=== PATIENT | male | born 1955 | race African-American/Black ===

== ENCOUNTER 2018-08-16 10:02 | Observation (INO) ==
--- NOTE | 2018-08-16 10:15 | Emergency Department Note ---
Disposition Clinical Impression: Congestive heart failure Qualifiers: Heart failure type: unspecified Heart failure chronicity: unspecified Qualified Code(s): I50.9 - Heart failure, unspecified Disposition: Admitted As Inpatient Condition: Fair Instructions: Heart Failure (ED) Referrals: Unassigned,Provider [Non-Partnered Physician] - SOB HPI - General Stated Complaint: RF Time Seen by Provider: 08/16/18 10:08 Source: patient, EMS Mode of arrival: EMS Limitations: no limitations Nursing Notes Reviewed: Yes Vital Signs Reviewed: Yes - History of Present Illness 62-year-old male percents for evaluation of shortness of breath. Patient states he has had a history of congestive heart failure and uses an inhaler for his lungs. He developed increased shortness of breath starting last night and increased this morning that he call [facility]. Patient states no cough. Denies any fever or chills. He does complain of tightness to his chest. He states no nausea vomiting. He said leg swelling he has is always present and does not feels worse than usual. Patient reports that he was supposed to start CPAP at home but has not picked up the necessary equipment to do so as of yet for obstructive sleep apnea Recent discharge summary hospital course from discharge on 05/23/2018 Hospital course: Mr. Talley is a 62 year old male with past medical history of prostate CA, HTN, HLD, DM-II, CAD s/p AK and stent placement, PAD s/p fem by pass B/L LE, ALICE, COPD, former smoker was referred to [facility] from primary care provider as he has elevated troponin in his lab reports and patient also reported left shoulder and chest pain with shortness of breath. The patient was referred from [facility] to [facility] for further cardiac workup.EKG done in ED showed sinus rhythm ,HR 91, non specific ST &T abnormalities. Chest x- ray: Minimal pulmonary vascular congestion. Serial Troponin level 0.07, 0.06. Echo showed : LVEF 50-55%. Normal LV chamber size, wall thickness and systolic function. Mild left ventricular diastolic dysfunction. The patient was admitted for cardiac cardiac monitoring and workup for chest pain. While he was in inpatient cardiologists consulted him and plan for left heart catheterization. He was undergone left heart catheterization 05/22/2018 LAD : here is a 70% stenosis in the Mid LAD. The lesion has no thrombus present. An intervention was performed on the Mid LAD with a final stenosis of 0%. There were no lesion complications, circumflex, right coronary artery, left main coronary artery angiographically free of disease. - Related Data Home Medications Medication Instructions Recorded Confirmed Pharmacy Note 05/21/18 Albuterol Sulfate [Ventolin Hfa] 18 gm IH Q6H PRN 08/16/18 08/16/18 Folic Acid 1 mg PO DAILY 08/16/18 08/16/18 Gabapentin [Neurontin] 300 mg PO DAILY 08/16/18 08/16/18 GlipiZIDE [Glipizide Xl] 5 mg PO DAILY 08/16/18 08/16/18 Lansoprazole [Prevacid] 15 mg PO DAILY 08/16/18 08/16/18 Loratadine [Claritin] 10 mg PO DAILY 08/16/18 08/16/18 Meloxicam 7.5 mg PO DAILY 08/16/18 08/16/18 Metformin HCl 850 mg PO DAILY 08/16/18 08/16/18 Nitroglycerin [Nitrostat] 0.4 mg SL PRN PRN 08/16/18 08/16/18 Previous Rx's Medication Instructions Recorded Aspirin 81 mg PO DAILY #30 tab.chew 05/23/18 Atorvastatin Calcium [Lipitor] 20 mg PO HS #30 tablet 05/23/18 Furosemide [Lasix] 20 mg PO DAILY #30 tablet 05/23/18 Losartan Potassium 100 mg PO DAILY #30 tablet 05/23/18 Metoprolol XL (24 HR) Succ [Toprol 25 mg PO DAILY #30 tab.er.24h 05/23/18 Xl] Ticagrelor [Brilinta] 90 mg PO BID #60 tablet 05/23/18 amLODIPine [Norvasc] 10 mg PO DAILY #60 tablet 05/23/18 cloNIDine HCl [CloNIDine HCl] 0.1 mg PO Q12H #60 tablet 05/23/18 Allergies Allergy/AdvReac Type Severity Reaction Status Date / Time lisinopril Allergy Swelling Verified 05/21/18 17:40 of Lip/Tongue/Throat ibuprofen AdvReac See Verified 05/21/18 17:40 Comments Tvponxv-Fyl-Mhu Reductase AdvReac Muscle Pain Verified 05/21/18 17:40 Inhibitor [Statins] Review of Systems: Constitutional: [Negative for fever and chills.] HENT: [Negative for congestion.] Eyes: [Negative for discharge.] Respiratory: See history of present illness Cardiovascular: See history of present illness Gastrointestinal: [Negative for nausea, vomiting, abdominal pain and diarrhea.] Endocrine: [Negative for excessive thirst,urination] Genitourinary: [Negative for dysuria and frequency.] Musculoskeletal: [Negative for myalgias and arthralgias.] Skin: [Negative for rash.] Neurological: [Negative for dizziness, localized weakness and headaches.] Psychiatric/Behavioral: [Negative for nervous/anxious.] All other systems reviewed and are negative. Past Medical History - Past Medical History Attestation: Yes The following information was validated with the patient. Source: patient Medical history: Reports: cancer, CHF, COPD, coronary artery disease, diabetes, hyperlipidemia, hypertension, myocardial infarction, peripheral artery disease, other Surgical history: Reports: angioplasty/stent, LE Bypass Psychiatric history: Reports: no psych history - Social History Smoking Status: Former smoker Smokeless Tobacco Status: No Alcohol use: Reports: rarely Drug use: Reports: none Physical Exam Constitutional: Patient is [alert], obese and tachypneic and cooperative. HENT: Head: Normocephalic and atraumatic. Right Ear: External ear normal. Left Ear: External ear normal. Nose: Nose normal. Mouth/Throat: Oropharynx is clear and mucous membranes show [good hydration.] Eyes: Conjunctivae and EOM are normal. Pupils are equal, round, and reactive to light. Right eye exhibits [no] discharge. Left eye exhibits [no] discharge. Neck: Trachea is midline, normal range of motion and [phonation normal]. Neck supple. Cardiovascular: [Regular rhythm], S1 normal, S2 normal, normal heart sounds and intact distal pulses. Exam reveals no gallop and no friction rub. No murmur heard. [Capillary refill is brisk.] [Peripheral pulses are 2+] Pulmonary/Chest: Effort increased No stridor. Mild tachypnea. Mild respiratory distress. There are decreased breath sounds. There are faint rales heard in both lower lobes but no obvious wheezes or rhonchi Abdominal: Soft. [Bowel sounds are normal]. There exhibits [no] distension and [no] mass. There is no hepatosplenomegaly. There is [no tenderness], [no] CVA tenderness. There is [no rigidity, no rebound, no guarding]. Musculoskeletal: Normal range of motion of uninvolved extremities. There exhibits [no edema]. [ ] Neurological: Patient is alert. Patient displays no atrophy and no tremor. Moves all 4 extremities equally without gross deficit. No cranial nerve deficit and exhibits normal muscle tone. Coordination normal grossly. Skin: Skin is warm and dry. No erythema. No rash noted. Psychiatric: Patient has a [normal mood and affect.] Course Course Narrative: Patient after receiving Lasix nitroglycerin has shown marked improvement is now able to tolerate nasal cannula oxygen is no submental form of oxygen. She was discussed with Dr. Fish who agrees for observation admission. Vital Signs Temperature 97.6 F 08/16/18 10:04 Pulse Rate 107 08/16/18 10:04 Respiratory Rate 30 08/16/18 10:04 Blood Pressure 173/122 08/16/18 10:04 O2 Sat by Pulse Oximetry 100 08/16/18 10:04 Temperature 97.6 F 08/16/18 10:04 Pulse Rate 89 08/16/18 11:37 Respiratory Rate 18 08/16/18 11:37 Blood Pressure 151/82 08/16/18 11:37 O2 Sat by Pulse Oximetry 98 08/16/18 11:37 Oxygen Delivery Oxygen Delivery Nasal Cannula Shortness of Breath/Dyspnea - Differential Diagnosis Likely: acute exacerbation of chronic obstructive airways disease, congestive heart failure, pneumonia. Unlikely: asthma with exacerbation, pulmonary embolism, pneumothorax, arrhythmia - Medical Records Medical records reviewed: Yes I reviewed the patient's medical records. - Lab Data Lab results reviewed: Yes I reviewed the patient's lab results. Result diagrams: 08/16/18 10:20 08/16/18 10:20 Lab Results 08/16/18 08/16/18 08/16/18 Range/Units 10:20 10:20 10:20 WBC 9.5 (4.3-11.1) K/mcL RBC 4.39 (4.19-5.50) M/mcL Hgb 12.3 L (12.9-16.9) g/dL Hct 38.9 (37.5-50.1) % MCV 88.6 (83.0-100.0) fL MCH 28.0 (28.0-33.3) pg MCHC 31.6 (31.6-35.5) g/dL RDW 15.6 H (11.5-14.5) % Plt Count 316 (140-400) K/mcL MPV 9.6 (9.4-12.4) fL Immature Gran % 0.2 (0-4) % Seg Neutrophils % 83.4 % Lymphocytes % 9.6 % Monocytes % 5.0 % Eosinophils % 1.6 % Basophils % 0.2 % Neutrophils # 7.9 (1.6-8.9) K/mcL Lymphocytes # 0.9 (0.6-4.6) K/mcL Monocytes # 0.5 (0.0-1.3) K/mcL Eosinophils # 0.2 (0.0-0.6) K/mcL Basophils # 0.0 (0.0-0.2) K/mcL ABG pH (7.32-7.45) pH Units ABG pCO2 (35-45) mmHg ABG pO2 (85-104) mmHg ABG HCO3 (21-27) mEq/L ABG Total CO2 (20-26) mEq/L ABG O2 Saturation (95-98) % ABG Base Excess (-2 to 3) mEq/L Sodium 138 (136-145) mEq/L Potassium 4.0 (3.5-5.1) mEq/L Chloride 105 (98-107) mEq/L Carbon Dioxide 24 (23-29) mEq/L BUN 16 (8-23) mg/dL Creatinine 1.24 (0.70-1.30) mg/dL Est GFR ( Amer) > 60 (> 60) Est GFR (Non-Af Amer) 59 L (> 60) BUN/Creatinine Ratio 13 (6-26) Glucose 217 H (70-105) mg/dL Calculated Osmolality 294 (280-300) Lactic Acid 3.1 H (0.5-2.2) mmol/L Calcium 9.2 (8.6-10.3) mg/dL Troponin I 0.04 H* (< 0.04) ng/mL B-Natriuretic Peptide (Less than 100) pg/mL 08/16/18 08/16/18 Range/Units 10:20 10:33 WBC (4.3-11.1) K/mcL RBC (4.19-5.50) M/mcL Hgb (12.9-16.9) g/dL Hct (37.5-50.1) % MCV (83.0-100.0) fL MCH (28.0-33.3) pg MCHC (31.6-35.5) g/dL RDW (11.5-14.5) % Plt Count (140-400) K/mcL MPV (9.4-12.4) fL Immature Gran % (0-4) % Seg Neutrophils % % Lymphocytes % % Monocytes % % Eosinophils % % Basophils % % Neutrophils # (1.6-8.9) K/mcL Lymphocytes # (0.6-4.6) K/mcL Monocytes # (0.0-1.3) K/mcL Eosinophils # (0.0-0.6) K/mcL Basophils # (0.0-0.2) K/mcL ABG pH 7.40 (7.32-7.45) pH Units ABG pCO2 36 (35-45) mmHg ABG pO2 75 L (85-104) mmHg ABG HCO3 22 (21-27) mEq/L ABG Total CO2 23 (20-26) mEq/L ABG O2 Saturation 95 (95-98) % ABG Base Excess -2 (-2 to 3) mEq/L Sodium (136-145) mEq/L Potassium (3.5-5.1) mEq/L Chloride (98-107) mEq/L Carbon Dioxide (23-29) mEq/L BUN (8-23) mg/dL Creatinine (0.70-1.30) mg/dL Est GFR ( Amer) (> 60) Est GFR (Non-Af Amer) (> 60) BUN/Creatinine Ratio (6-26) Glucose (70-105) mg/dL Calculated Osmolality (280-300) Lactic Acid (0.5-2.2) mmol/L Calcium (8.6-10.3) mg/dL Troponin I (< 0.04) ng/mL B-Natriuretic Peptide 140 H (Less than 100) pg/mL - Radiology Data Radiology results reviewed: Yes I reviewed the patient's radiology results. FINDINGS: No focal consolidations. Trace left pleural effusion. Possible emphysematous changes. Heart size is within normal limits. Possible right hilar fullness. XR/XR chest 1V portable IMPRESSION: 1. Possible right hilar fullness. Further evaluation with contrast-enhanced CT of the chest is recommended. 2. Suspected trace left pleural effusion. - EKG Data EKG attestation: Yes I reviewed and interpreted this EKG. EKG shows normal: Reports: sinus rhythm, axis, intervals, QRS complexes Q waves: Reports: v1, v2 Interpretation: Reports: no acute changes, unchanged when compared to prior tracing (date) (05/26/2018), nonspecific ST-T wave changes
[2018-08-16 10:30] LABS: Basophils % 0.2 %; Eosinophils # 0.2 K/mcL (0.0-0.6); Eosinophils % 1.6 %; Hematocrit 38.9 % (37.5-50.1); Hemoglobin 12.3 g/dL (12.9-16.9); Immature Granulocytes % 0.2 % (0-4); Lymphocytes # 0.9 K/mcL (0.6-4.6); Lymphocytes % 9.6 %; Mean Corpuscular HGB Conc 31.6 g/dL (31.6-35.5); Mean Corpuscular Volume 88.6 fL (83.0-100.0); Mean Platelet Volume 9.6 fL (9.4-12.4); Monocytes # 0.5 K/mcL (0.0-1.3); Neutrophils # 7.9 K/mcL (1.6-8.9); Platelet Count 316 K/mcL (140-400); Red Blood Count 4.39 M/mcL (4.19-5.50); Red Cell Distribution Width 15.6 % (11.5-14.5); Segmented Neutrophils % 83.4 %
[2018-08-16] MEDS ORDERED: Aspirin 81 MG TAB.CHEW PO STA (10:33)
[2018-08-16 10:37] LABS: ABG Base Excess -2 mEq/L (-2 to 3); ABG HCO3 22 mEq/L (21-27); ABG Oxygen Saturation 95 % (95-98); ABG PCO2 36 mmHg (35-45); ABG PO2 75 mmHg (85-104); ABG TCO2 23 mEq/L (20-26)
[2018-08-16 10:46] LABS: BUN/Creatinine Ratio 13 (6-26); Blood Urea Nitrogen 16 mg/dL (8-23); Calcium 9.2 mg/dL (8.6-10.3); Carbon Dioxide 24 mEq/L (23-29); Chloride 105 mEq/L (98-107); Glucose 217 mg/dL (70-105); Osmolality,Calculated 294 (280-300); Sodium 138 mEq/L (136-145); eGFR For Non-African Americans 59 (> 60)
[2018-08-16 10:53] LABS: Troponin I 0.04 ng/mL (< 0.04)
[2018-08-16] MEDS ORDERED: Nitroglycerin 0.4 MG TAB.SUBL SL PRN (11:55)
[2018-08-16] MEDS ORDERED: Mag Hydrox/Al Hydrox/Simeth 30 ML UDC PO PRN (12:11)
[2018-08-16] MEDS ORDERED: Acetaminophen 325 MG TABLET PO PRN (12:11)
--- NOTE | 2018-08-16 12:37 | Internal Med History&Physical ---
Addendum entered and electronically signed by Mj Fish MD 08/16/18 13:24: I have personally performed a face to face evaluation on this patient. I have r eviewed and agree with the care plan. History and Exam by me shows: Patient is a 62-year-old male with a history of coronary disease, BPH, hypertension, hyperlipidemia, sleep apnea 2 which has been poorly treated. Insulin-dependent type 2 diabetes, obesity, anemia (which is poorly characterized), COPD, remote smoking. He has a poor source of medical information for details. He states that he has no coronary disease or other heart problems but admits to 5 stents. He has a 2 day history of worsening shortness of breath but especially last evening. He felt like he could not get his air, had left precordial chest pressure, diaphoresis, warm, no cough or actual chest pain. For this reason, he presented to the emergency room and was found to be mildly hypoxic, was felt to be in congestive heart failure and received IV Lasix. He improved. However, any exertion causes him to have marked dyspnea. He is feeling better while at rest. He states he had marked increased in his ankle edema and this is better, since arrival here. Laboratory studies an EKG and x-ray were reviewed. He admits to poor dentition, states that he is to be on a 2 L fluid restriction which he is not very compliant with. Patient has no complaint of chest discomfort, dyspnea, orthopnea, breathing prob lems, palpitations, nausea or vomiting, constipation or diarrhea, other changes in bowel habits, heartburn, difficulty with urination, kidney problems or kidney stones, fevers chills or sweats, rash or itching, seizures, headache or lightheadedness, heat or cold intolerance, blood problems or anemia, or other new complaints, except as mentioned above. Review of systems is otherwise negative. Examination: (Except as mentioned above): General: In no apparent distress, alert and oriented 3. Head: Atraumatic and normocephalic. Eyes: Extraocular muscles are intact, pupils equal round and reactive to light and accommodation. Sclerae anicteric. Ears: External ears are normal to inspection and hearing is grossly normal. Nose: Patent without lesion noted. Mouth: No intraoral lesions seen. Dentition is remarkable for only a few mandibular teeth in poor repair. Neck: Supple with trachea midline. There is no thyromegaly or adenopathy and carotids are 2+ without bruit heard. No jugular venous distention. Respiratory: No use of accessory muscles. Lungs are clear throughout. Normal a irflow. Cardiovascular: Regular rate and rhythm without murmur appreciated. Abdomen: Bowel sounds are normal. No hepatosplenomegaly masses or tenderness. Obese (protuberant) with umbilical hernia and therefore difficult to palpate deeply. Extremities: No cyanosis clubbing or edema. Neurological: A and O 3. Cranial nerves II through XII are intact. No focal deficits and no abnormal movements or postures. Skin: Warm and non-diaphoretic with no lesions noted. Breasts, pelvic and rectal: Not examined. I am concerned that he is being treated for CHF but has few signs or symptoms. While he had rales upon admission to the emergency room, there are none now. His BNP is minimally elevated. This could represent stent dysfunction so we will make sure he has no worsening of his troponins and make sure he has no other signs of myocardial ischemia. He will be kept on telemetry, have as neede d nitroglycerin, and has been instructed carefully to let nursing know immediately should he have worsening shortness of breath or chest pressure or pain. He will be placed on a cardiac diet with fluid restriction and a diabetic diet, as well. He will receive sliding scale insulin coverage, as necessary. We will continue his CPAP and oxygen saturation monitoring, overnight. Original Note: Date of Encounter: 08/16/18 Time of Encounter: 12:34 Assessment and Plan (1) Congestive heart failure Current visit: Yes Status: Acute Patient presented to us emergency department with complaints of slight chest tightness and progressing shortness of breath over the past 2 days. Patient was treated initially in the emergency part with nitroglycerin and Lasix. Patient states that his chest tightness has mostly resolved. Patient's respiratory effort has improved since arrival in emergency department and he is noted to be diuresing well after receiving IV Lasix. Lungs with diminished basilar albert but otherwise are clear. Initial chest x-ray shows no infectious process or pulmonary edema. Initial lab shows slightly elevated troponin 0.04 and patient's BNP was 140. Patient's wart of breath has improved since arrival to the ED the patient reportedly became short of breath during transfer from cart to bed. We will continue with serial troponins. We will maintain patient on nuclear monitoring technician overnight. Patient with recent history of PTCA in April and we will continue to monitor patient closely due to his recent CAD. Qualifiers: Heart failure type: unspecified Heart failure chronicity: unspecified Qualified Code(s): I50.9 - Heart failure, unspecified (2) BPH (benign prostatic hyperplasia) Current visit: Yes Status: Chronic Patient with complaints of urinary frequency and nocturia prior to his admission. Patient states that he continues to urinate only small amounts during his diuresis from ED medications. Patient with long history of BPH and Prostate CA. We will obtain a bladder scan postvoid and continue with current medications. Patient reportedly follows with urology. Qualifiers: Lower urinary tract symptom presence: symptoms present Qualified Code(s): N40.1 - Benign prostatic hyperplasia with lower urinary tract symptoms; R35.0 - Frequency of micturition (3) Essential (primary) hypertension Current visit: No Status: Chronic Vital signs been stable since his admission. We will continue to monitor patien t closely and continue with home meds. (4) CAD (coronary artery disease) Current visit: No Status: Chronic Patient with recent history of a in April 2018. Patient currently arrives with complaints of chest tightness and increased shortness of breath. Initial troponin at 0.04. Initial EKG showed no ischemic changes. Patient responded to NTG and Lasix while in the emergency department. We will continue patient with serial troponins. Patient to stay on cardiac monitoring overnight and we will continue to follow closely. Qualifiers: Coronary Disease-Associated Artery/Lesion type: [place] artery [place] vs. transplanted heart: [place] heart Associated angina: angina presence unspecified Qualified Code(s): I25.10 - Atherosclerotic heart disease of [place] coronary artery without angina pectoris (5) ALICE (obstructive sleep apnea) Current visit: Yes Status: Chronic Patient with history of severe sleep apnea. Patient has been supplied with a CPAP at home but states that he returned. We will have played patient placed on CPAP while at facility and evaluate his need for equipment at home. (6) Diabetes Current visit: Yes Status: Chronic Patient with history of type 2 diabetes. Initial glucose during emergency department was 212. We will continue patient with current medication regimen and do fingersticks before meals and at bedtime for further evaluation of any needs for patient's current medications. 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 Talley is a 62 year old male, presented to emergency department with complaints of increased shortness of breath and chest discomforts. Patient states that he began to have increasing shortness of breath yesterday which has progressed overnight. Patient states that he has a slight chest tightness to his left sternal border. Patient was placed on oxygen and given nitroglycerin in the emergency department and states that his chest tightness has mostly resolved. Patient also received IV Lasix while in emergency department has been diuresing since his discharge from emergency department. Patient currently appea rs relaxed with respirations while at rest, but nursing reports patient became very winded while attempting to transfer from the car to his bed. Patient was recently admitted to [facility] in April of this year, where he had a cardiac catheterization and then treated with a coronary stent. Patient reports no unusual cardiac events since that time. Patient with a past medical history of prostate CA, HTN, HLD, DM-II, CAD s/p SD and stent placement, PAD s/p fem by pass B/L LE, ALICE, COPD and a former smoker Patient states that he experiences shortness of breath during exertion and can easily ambulate up to 50 feet before becoming fatigued and winded. Patient denies any orthopnea. Arnie painting does describe some dizziness that is orthostatic in nature. Patient also complaints of urinary frequency and nocturia. Past Med Surg Social Fam HX - Past Medical History Medical history: cancer, CHF, COPD, coronary artery disease, diabetes, hyperlipidemia, hypertension, myocardial infarction, peripheral artery disease, other Additional medical history: PROSTATE CANCER Psychiatric history: no psych history - Past Surgical History Surgical History: angioplasty/stent, LE Bypass Additional surgical history: fem to fem bypass and cardiac stent - Social History Smoking Status: Former smoker Smokeless Tobacco Status: No Alcohol use: rarely Drug use: none Internal Medicine - H&P: Meds Pharmacy Note 05/21/18 [History] Aspirin 81 mg PO DAILY #30 tab.chew 05/23/18 [Rx] Atorvastatin Calcium [Lipitor] 20 mg PO HS #30 tablet 05/23/18 [Rx] Furosemide [Lasix] 20 mg PO DAILY #30 tablet 05/23/18 [Rx] Losartan Potassium 100 mg PO DAILY #30 tablet 05/23/18 [Rx] Metoprolol XL (24 HR) Succ [Toprol Xl] 25 mg PO DAILY #30 tab.er.24h 05/23/18 [Rx] Ticagrelor [Brilinta] 90 mg PO BID #60 tablet 05/23/18 [Rx] amLODIPine [Norvasc] 10 mg PO DAILY #60 tablet 05/23/18 [Rx] cloNIDine HCl [CloNIDine HCl] 0.1 mg PO Q12H #60 tablet 05/23/18 [Rx] Albuterol Sulfate [Ventolin Hfa] 18 gm IH Q6H PRN 08/16/18 [History] Folic Acid 1 mg PO DAILY 08/16/18 [History] Gabapentin [Neurontin] 300 mg PO DAILY 08/16/18 [History] GlipiZIDE [Glipizide Xl] 5 mg PO DAILY 08/16/18 [History] Lansoprazole [Prevacid] 15 mg PO DAILY 08/16/18 [History] Loratadine [Claritin] 10 mg PO DAILY 08/16/18 [History] Meloxicam 7.5 mg PO DAILY 08/16/18 [History] Metformin HCl 850 mg PO DAILY 08/16/18 [History] Nitroglycerin [Nitrostat] 0.4 mg SL PRN PRN 08/16/18 [History] Allergy/AdvReac Type Severity Reaction Status Date / Time lisinopril Allergy Swelling Verified 05/21/18 17:40 of Lip/Tongue/Throat ibuprofen AdvReac See Verified 05/21/18 17:40 Comments Iuftsru-Ryn-Yhe Reductase AdvReac Muscle Pain Verified 05/21/18 17:40 Inhibitor [Statins] All Systems PM: A 10-system review of systems was performed and is negative for pertinent findings except as documented above in the HPI. - Constitutional Constitutional: as per HPI, no chills, no fever(s), no night sweats - EENT Eyes: as per HPI, no change in vision, no discharge, no pain, no photophobia Ears: as per HPI, no ear discharge, no ear pain, no tinnitus Nose, mouth and throat: as per HPI, no dysphagia, no nasal discharge, no neck pain, no sore throat - Breasts Breasts: as per HPI - Cardiovascular Cardiovascular ROS IM: as per HPI, chest pain, dyspnea on exertion, no diaphoresis, no dyspnea, no lightheadedness, no palpitations, no syncope - Respiratory Respiratory: as per HPI, dyspnea, dyspnea on exertion, no cough, no wheezing, no excessive phlegm production - Gastrointestinal Gastrointestinal: as per HPI, no abdominal pain, no diarrhea, no hematemesis, no hematochezia, no melena, no nausea, no vomiting - Genitourinary Genitourinary ROS male: as per HPI, nocturia, urinary frequency - Musculoskeletal Musculoskeletal ROS IM: as per HPI, no numbness, no tingling - Integumentary Integumentary IM: as per HPI, no rash, no unusual bruising - Neurological Neurological ROS: no confusion, no convulsions, no focal weakness, no numbness, no tingling, no tremor(s) - Hematologic/Lymphatic Hematologic/Lymphatic: no easy bruising - Constitutional Vitals: Temp Pulse Resp BP Pulse Ox 97.6 F 89 16 148/98 98 08/16/18 10:04 08/16/18 11:37 08/16/18 11:58 08/16/18 11:58 08/16/18 11:37 General appearance: Present: A&O X 3, pleasant - Head Head exam: Present: atraumatic, normocephalic - Eye Eye exam: Present: PERRL, conjuntiva pink, sclera anicteric Pupils: Present: PERRL - Neck Neck exam general surgery: Present: supple, trachea midline. Absent: lymphadenopathy - Respiratory Respiratory exam: Present: decreased breath sounds, CTAB. Absent: accessory muscle use, rales, rhonchi, wheezes Additional comments: Lungs are clear throughout upper albert with diminished breath sounds. Respiratory effort appears relaxed while at rest. Patient with oxygen at 2 L per nasal cannula. No productive cough noted. - Cardiovascular Cardiovascular exam: Present: RRR, +S1, +S2. Absent: diastolic murmur, gallop, rubs, systolic murmur - GI/Abdominal GI/Abdominal exam: Present: distended, normal bowel sounds, soft, no peritoneal signs. Absent: tenderness Additional comments: Patient's abdomen appears distended, but remains soft. Patient states abdomen appears normal - Extremities Exam Extremities exam: Present: pedal edema, warm, radial pulses palpable and symmetrical. Absent: calf tenderness, cyanotic Additional comments: Slight, +1 edema to lower legs and feet. Legs are warm to touch with capillary refill less than 3 seconds. Unable to palpate PD and DP pulses - Neurological Exam Neurological exam: Present: CN II-XII intact, oriented X3, no focal deficits. Absent: pronater drift, facial droop, speech deficit - Skin Skin exam: Present: dry, intact Internal Med - H&P Results - Labs CBC & Chem 7: 08/16/18 10:20 08/16/18 10:20 Labs: Short CBC 08/16/18 Range/Units 10:20 WBC 9.5 (4.3-11.1) K/mcL Hgb 12.3 L (12.9-16.9) g/dL Hct 38.9 (37.5-50.1) % Plt Count 316 (140-400) K/mcL Neutrophils # 7.9 (1.6-8.9) K/mcL BMP 08/16/18 10:20 Sodium 138 Potassium 4.0 Chloride 105 Carbon Dioxide 24 BUN 16 Creatinine 1.24 Glucose 217 H Calcium 9.2 Cardiac Enzymes 08/16/18 Range/Units 10:20 Troponin I 0.04 H* (< 0.04) ng/mL - ABG Interpretation ABG results: 08/16/18 10:33 ABG pH 7.40 ABG pCO2 36 ABG pO2 75 L ABG HCO3 22 ABG Total CO2 23 ABG O2 Saturation 95 ABG Base Excess -2 - Impressions ITS Impressions Chest X-Ray 08/16/18 10:08 IMPRESSION: 1. Possible right hilar fullness. Further evaluation with contrast-enhanced CT of the chest is recommended. 2. Suspected trace left pleural effusion. D/ / Chuy Hightower MD / Chuy Hightower MD Interpreting Provider: Chuy Hightower MD
[2018-08-16] MEDS ORDERED: *HR* Dextrose 50 % in Water (Syg) 50 ML SYRINGE IVP PRN (13:35)
[2018-08-16] MEDS ORDERED: Dextrose Gel 15 GM/37.5 ML TUBE PO PRN ×2 (13:35)
[2018-08-16] MEDS ORDERED: D5% in Water 1,000 ML IVC PRN (13:35)
[2018-08-16 13:43] LABS: Bilirubin,Urine Negative (Negative); Blood,Urine Negative (Negative); Clarity,Urine Clear (Clear); Color,Urine Yellow (Yellow); Glucose,Urine (UA) Normal (Normal); Ketones,Urine Negative (Negative); Leukocyte Esterase,Urine Negative (Negative); Nitrite,Urine Negative (Negative); Protein,Urine Negative (Neg-Trace); Specific Gravity,Urine 1.015 (1.010-1.025); Urobilinogen,Urine Normal (Normal)
[2018-08-16] MEDS: cloNIDine HCl 0.1 MG TABLET PO SCH ×2 (17:22→21:01)
[2018-08-16] MEDS: Insulin LISPRO 300 UNITS/3 ML VIAL SQ SCH (19:41)
[2018-08-16] MEDS ORDERED: Insulin LISPRO 300 UNITS/3 ML VIAL SQ SCH (21:00)
[2018-08-16] MEDS: Ondansetron ODT 4 MG TAB.RAPDIS SL PRN (21:01)
[2018-08-16] MEDS: *HR* Ticagrelor 90 MG TABLET PO SCH (21:01)
[2018-08-17 05:46] LABS: Hemoglobin 11.1 g/dL (12.9-16.9); Mean Corpuscular HGB Conc 30.8 g/dL (31.6-35.5); Mean Corpuscular Hemoglobin 27.1 pg (28.0-33.3); Mean Corpuscular Volume 87.8 fL (83.0-100.0); Mean Platelet Volume 9.7 fL (9.4-12.4); Platelet Count 306 K/mcL (140-400); Red Cell Distribution Width 15.4 % (11.5-14.5)
[2018-08-17 06:02] LABS: Alanine Aminotransferase 66 Units/L (7-52); Albumin 3.8 g/dL (3.5-5.7); Albumin/Globulin Ratio 1.6 (1.1-2.2); Alkaline Phosphatase 54 Units/L (34-104); Aspartate Amino Transferase 32 Units/L (13-39); BUN/Creatinine Ratio 20 (6-26); Bilirubin,Total 0.5 mg/dL (0.3-1.0); Blood Urea Nitrogen 22 mg/dL (8-23); Calcium 9.1 mg/dL (8.6-10.3); Carbon Dioxide 25 mEq/L (23-29); Chloride 105 mEq/L (98-107); Globulin 2.4 g/dL (2.4-3.5); Glucose 136 mg/dL (70-105); Osmolality,Calculated 287 (280-300); Potassium 4.3 mEq/L (3.5-5.1); Sodium 136 mEq/L (136-145); Total Protein 6.2 g/dL (6.4-8.9); eGFR For Non-African Americans > 60 (> 60)
[2018-08-17] MEDS: Ondansetron ODT 4 MG TAB.RAPDIS SL PRN (06:06)
[2018-08-17] MEDS ORDERED: *HR* Enoxaparin 40 MG/0.4 ML SYRINGE SQ SCH (07:00)
[2018-08-17 08:24] VITALS: BP 127/68
[2018-08-17] MEDS: *HR* Ticagrelor 90 MG TABLET PO SCH (08:39)
[2018-08-17] MEDS: cloNIDine HCl 0.1 MG TABLET PO SCH (08:39)
[2018-08-17] MEDS: Gabapentin 300 MG CAPSULE PO SCH ×2 (08:40→09:10)
--- NOTE | 2018-08-17 08:52 | Internal Med Progress Note ---
Date of Encounter: 08/17/18 Time of Encounter: 08:48 - Assessment and plan (1) Diabetes 1.5, managed as type 2 Current Visit: Yes Status: Chronic Assessment and plan: on meds seems to be doing continue to followup and adjust meds (2) Essential (primary) hypertension Current Visit: No Status: Chronic Assessment and plan: on multiple meds and is stable C[place]tinie to follow and adjust his meds as needed (3) CAD (coronary artery disease) Current Visit: No Status: Chronic Assessment and plan: s/p Stent roughly few months ago . his Acute SOB and Nausea could all meets the [place] for NSTEMI,awaits his new order for troponin will plan to transfer . Clinically he is doing well and is stable now Qualifiers: Coronary Disease-Associated Artery/Lesion type: [place] artery [place] vs. transplanted heart: [place] heart Associated angina: angina presence u nspecified Qualified Code(s): I25.10 - Atherosclerotic heart disease of [place] coronary artery without angina pectoris (4) Elevated troponin Current Visit: No Status: Acute (5) Non-STEMI (non-ST elevated myocardial infarction) Current Visit: Yes Status: Acute Assessment and plan: On tele. Meets criteria for NOSTEMI plan to transfer him to [facility] for cardiology assessment he is on Beta blockers and antiplatelet treatment - Subjective Interval history: Cross coverage , B M with significant hx of PVD s/p stent about few months ago admitted yesterday for nausea and SOB .He felt that he was going to . No chest pain but felt some nausea no fever or chills . He was admitted and treated symptomatically with breathing treatment and Maalox . he seems to be back to his normal self without any SOB , chest discomfort . able to sleep through ight . His troponin three set two positive . EKG from ER has pt of artifacts followup EKG today shows lateral wall ischemia - Constitutional Vitals: Temp Pulse Resp BP Pulse Ox 98.6 F 74 18 127/68 96 08/17/18 07:50 08/17/18 07:50 08/17/18 07:50 08/17/18 07:50 08/17/18 07:50 General appearance: Present: A&O X 3, morbidly obese, pleasant - Head Head exam: Present: atraumatic - Eye Eye exam: Present: EOMI, PERRL - Neck Neck exam general surgery: Present: supple. Absent: tenderness, nuchal rigidity - Respiratory Respiratory exam: Present: CTAB. Absent: decreased breath sounds, respiratory distress, rhonchi, stridor, wheezes, tachypnea - Cardiovascular Cardiovascular exam: Present: RRR, +S1, +S2, systolic murmur Additional comments: soft systolic mummer at the Aortic area no radiation - GI/Abdominal GI/Abdominal exam: Present: normal bowel sounds, soft. Absent: distended, guarding, rebound, tenderness Additional comments: obese and soft - Extremities Exam Extremities exam: Absent: pedal edema, tenderness Additional comments: has surgical scars for his PVD and old surgeries - Neurological Exam Neurological exam: Present: CN II-XII intact, oriented X3, reflexes normal. Absent: no focal deficits, facial droop, speech deficit Internal Medicine: Result - Labs CBC & Chem 7: 08/17/18 05:30 08/17/18 05:30 Labs: Short CBC 08/16/18 08/17/18 Range/Units 10:20 05:30 WBC 9.5 10.3 (4.3-11.1) K/mcL Hgb 12.3 L 11.1 L (12.9-16.9) g/dL Hct 38.9 36.0 L (37.5-50.1) % Plt Count 316 306 (140-400) K/mcL Neutrophils # 7.9 (1.6-8.9) K/mcL BMP 08/16/18 08/17/18 10:20 05:30 Sodium 138 136 Potassium 4.0 4.3 Chloride 105 105 Carbon Dioxide 24 25 BUN 16 22 Creatinine 1.24 1.09 Glucose 217 H 136 H Calcium 9.2 9.1 Cardiac Enzymes 08/16/18 08/16/18 08/16/18 Range/Units 10:20 16:12 21:55 Troponin I 0.04 H* 0.07 H* 0.06 H* (< 0.04) ng/mL Liver Function 08/17/18 Range/Units 05:30 Total Bilirubin 0.5 (0.3-1.0) mg/dL AST 32 (13-39) Units/L ALT 66 H (7-52) Units/L Alkaline Phosphatase 54 (34-104) Units/L Albumin 3.8 (3.5-5.7) g/dL Urine 08/16/18 Range/Units 13:01 Urine Color Yellow (Yellow) Urine Clarity Clear (Clear) Urine pH 7.0 (5.0-8.0) pH Units Ur Specific [place] 1.015 (1.010-1.025) Urine Protein Negative (Neg-Trace) mg/dL Urine Glucose (UA) Normal (Normal) mg/dL - ABG Interpretation ABG results: ABG ABG pH 7.40 pH Units (7.32-7.45) 08/16/18 10:33 ABG pCO2 36 mmHg (35-45) 08/16/18 10:33 ABG pO2 75 mmHg (85-104) L 08/16/18 10:33 ABG O2 Saturation 95 % (95-98) 08/16/18 10:33 - EKG Interpretation EKG Interpreted by Myself: Yes (Sinus rhy. lateral wall ischemia seems to be new when compared with Dar EKG) - Impressions Impressions Chest X-Ray 08/16/18 10:08 IMPRESSION: 1. Possible right hilar fullness. Further evaluation with contrast-enhanced CT of the chest is recommended. 2. Suspected trace left pleural effusion. D/ / Chuy Hightower MD / Chuy Hightower MD Interpreting Provider: Chuy Hightower MD Consult Discharge Plan - Plan Referrals: Ami Ayers, [employer] [Primary Care Provider] -
[2018-08-17] MEDS ORDERED: *HR* GlipiZIDE XL (24 HR) 2.5 MG TABLET PO SCH (09:00)
[2018-08-17] MEDS ORDERED: Loratadine 10 MG TABLET PO SCH (09:00)
[2018-08-17] MEDS ORDERED: Folic Acid 1 MG TABLET PO SCH (09:00)
[2018-08-17] MEDS ORDERED: Aspirin 81 MG TAB.CHEW PO SCH (09:00)
[2018-08-17] MEDS ORDERED: Metoprolol XL (24 HR) Succ 25 MG TAB.ER.24H PO SCH (09:00)
[2018-08-17] MEDS ORDERED: *HR* Metformin 850 MG TABLET PO SCH (09:00)
[2018-08-17] MEDS ORDERED: amLODIPine 5 MG TABLET PO SCH (09:00)
[2018-08-17] MEDS: Insulin LISPRO 300 UNITS/3 ML VIAL SQ SCH ×2 (09:10→12:00)
--- NOTE | 2018-08-17 09:25 | Discharge Summary ---
Orders not resulted at time of discharge: Pending orders 08/16/18 12:14 ECG 12 lead ECG [ECG] Routine 08/17/18 05:30 Hgb A1C AM 0400 08/17/18 06:00 EKG [ECG 12 lead ECG] [ECG] AM 0600 08/17/18 08:08 EKG [ECG 12 lead ECG] [ECG] Routine Date of Encounter: 08/17/18 Time of Encounter: 09:23 - Discharge Diagnosis (1) Diabetes 1.5, managed as type 2 Priority: Secondary Status: Chronic Comments: stable on oral meds (2) Essential (primary) hypertension Priority: Secondary Status: Chronic Comments: stable on meds (3) CAD (coronary artery disease) Priority: Secondary Status: Chronic Comments: hx of STENT few months a go CAD and PVD Qualifiers: Coronary Disease-Associated Artery/Lesion type: [place] artery [place] vs. transplanted heart: [place] heart Associated angina: angina presence unspecified Qualified Code(s): I25.10 - Atherosclerotic heart disease of [place] coronary artery without angina pectoris (4) Elevated troponin Priority: Primary Status: Acute Comments: seems more like NONSTEMI troponin still high (5) Non-STEMI (non-ST elevated myocardial infarction) Priority: Primary Status: Acute Comments: hx of CAD , admitted for OSB acute onset gets SOB on minima exertion increase troponin and lateral wall T inversion ischemia , new when compared to previous EKG available from April Hospital course: Mr. Talley is a 62 year old male who was admitted for OSB , nausea and GERD sumptoms , h pf PVD and CAD stent placement was admitted and treated co nservatively. His troponin were high followup EKG shows T inversion laterla leads new when compared to EKG available h is ding better and not SOB when in beds . Gets short winded very qucikely. Overall he stay has been stable due to change in EKG and increase troponin , meets NON STEMI criteria being transferred to [facility] for Cardiology assessment and further management - Time Spent with Patient Total time spent providing and/or coordinating discharge services: - Discharge Medications Prescriptions: No Action Pharmacy Note amLODIPine [Norvasc] 10 mg PO DAILY #60 tablet Aspirin 81 mg PO DAILY #30 tab.chew Atorvastatin Calcium [Lipitor] 20 mg PO HS #30 tablet cloNIDine HCl [CloNIDine HCl] 0.1 mg PO Q12H #60 tablet Furosemide [Lasix] 20 mg PO DAILY #30 tablet Losartan Potassium 100 mg PO DAILY #30 tablet Metoprolol XL (24 HR) Succ [Toprol Xl] 25 mg PO DAILY #30 tab.er.24h Ticagrelor [Brilinta] 90 mg PO BID #60 tablet Nitroglycerin [Nitrostat] 0.4 mg SL PRN PRN PRN Reason: Chest Pain Metformin HCl 850 mg PO DAILY Meloxicam 7.5 mg PO DAILY Loratadine [Claritin] 10 mg PO DAILY Lansoprazole [Prevacid] 15 mg PO DAILY GlipiZIDE [Glipizide Xl] 5 mg PO DAILY Gabapentin [Neurontin] 300 mg PO DAILY Folic Acid 1 mg PO DAILY Albuterol Sulfate [Ventolin Hfa] 18 gm IH Q6H PRN PRN Reason: Shortness Of Breath Home Medications: Pharmacy Note 05/21/18 [History] Aspirin 81 mg PO DAILY #30 tab.chew 05/23/18 [Rx] Atorvastatin Calcium [Lipitor] 20 mg PO HS #30 tablet 05/23/18 [Rx] Furosemide [Lasix] 20 mg PO DAILY #30 tablet 05/23/18 [Rx] Losartan Potassium 100 mg PO DAILY #30 tablet 05/23/18 [Rx] Metoprolol XL (24 HR) Succ [Toprol Xl] 25 mg PO DAILY #30 tab.er.24h 05/23/18 [Rx] Ticagrelor [Brilinta] 90 mg PO BID #60 tablet 05/23/18 [Rx] amLODIPine [Norvasc] 10 mg PO DAILY #60 tablet 05/23/18 [Rx] cloNIDine HCl [CloNIDine HCl] 0.1 mg PO Q12H #60 tablet 05/23/18 [Rx] Albuterol Sulfate [Ventolin Hfa] 18 gm IH Q6H PRN 08/16/18 [History] Folic Acid 1 mg PO DAILY 08/16/18 [History] Gabapentin [Neurontin] 300 mg PO DAILY 08/16/18 [History] GlipiZIDE [Glipizide Xl] 5 mg PO DAILY 08/16/18 [History] Lansoprazole [Prevacid] 15 mg PO DAILY 08/16/18 [History] Loratadine [Claritin] 10 mg PO DAILY 08/16/18 [History] Meloxicam 7.5 mg PO DAILY 08/16/18 [History] Metformin HCl 850 mg PO DAILY 08/16/18 [History] Nitroglycerin [Nitrostat] 0.4 mg SL PRN PRN 08/16/18 [History] Allergies/Adverse Reactions: Allergy/AdvReac Type Severity Reaction Status Date / Time lisinopril Allergy Swelling Verified 05/21/18 17:40 of Lip/Tongue/Throat ibuprofen AdvReac See Verified 05/21/18 17:40 Comments Xoodtxi-Fyj-Eqp Reductase AdvReac Muscle Pain Verified 05/21/18 17:40 Inhibitor [Statins] Date of admission: 08/16/18 11:52 Primary care physician: Ami Ayers, [facility] [facility] Discharging clinician: Isis Almanzar ([facility] [place] [facility] [place] ) Anticipated date of discharge: 08/17/18 - Constitutional Vitals: Temp Pulse Resp BP Pulse Ox 98.6 F 74 18 127/68 96 08/17/18 07:50 08/17/18 07:50 08/17/18 07:50 08/17/18 07:50 08/17/18 07:50 General appearance: Present: A&O X 3, morbidly obese, pleasant - Head Head exam: Present: atraumatic - Eye Eye exam: Present: EOMI, PERRL. Absent: periorbital swelling, conjuntiva pink, sclera anicteric Pupils: Present: PERRL - Neck Neck exam general surgery: Present: supple. Absent: tenderness, nuchal rigidity - Respiratory Respiratory exam: Present: CTAB. Absent: respiratory distress, rhonchi, stridor, wheezes, tachypnea - Cardiovascular Cardiovascular exam: Present: +S1, +S2, systolic murmur. Absent: irregular rhythm, JVD Additional comments: soft systolic murmur aortic are no radiation - GI/Abdominal GI/Abdominal exam: Present: hernia, soft. Absent: distended, guarding, pulsatile mass, rebound, rigid Additional comments: umbilical hernia non obstructive - Extremities Exam Extremities exam: Absent: pedal edema, tenderness - Neurological Exam Neurological exam: Present: CN II-XII intact, oriented X3, no focal deficits. Absent: facial droop, speech deficit - Patient Status Disposition: Transfer Critical Access Hosp Functional capacity at discharge: bed bound Overall status at discharge: patient is back to baseline - Discharge Instructions Instructions: Heart Failure (DC) Follow Up With: Ami Ayers CNP [Primary Care Provider] - Forms: ED Satisfaction Letter
[2018-08-17] MEDS ORDERED: *HR* Heparin 5,000 UNIT/ML VIAL IVP PRN (09:53)
[2018-08-17] MEDS ORDERED: Heparin 25,000 UNIT/250 ML D5W 25,000 UNIT/250 ML IV.SOLN IVC SCH (10:00)
--- NOTE | 2018-08-17 10:20 | Electrocardiograph Report ---
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
[2018-08-17 10:24] LABS: Hemoglobin 11.7 g/dL (12.9-16.9); Mean Corpuscular HGB Conc 31.6 g/dL (31.6-35.5); Mean Corpuscular Hemoglobin 27.7 pg (28.0-33.3); Mean Corpuscular Volume 87.7 fL (83.0-100.0); Mean Platelet Volume 9.7 fL (9.4-12.4); Platelet Count 323 K/mcL (140-400); Red Blood Count 4.22 M/mcL (4.19-5.50); Red Cell Distribution Width 15.5 % (11.5-14.5)
[2018-08-17 10:43] LABS: Heparin anti-factor XA UFH 0.13 IU/mL (0.30-0.70)
[2018-08-17 10:45] LABS: Activated Partial Thrombo Time 35.7 Seconds (26.0-36.0)
[2018-08-17 13:44] LABS: Estimated Average Glucose 169 mg/dl; Hemoglobin A1C 7.5 %
== END 2018-08-17 11:30 | disposition critical access hospital (66) ==
LOC: INPGRE 10:02 → EMEROOGRE 10:02 → INPGRE 12:01

== ENCOUNTER 2020-04-16 09:47 | Observation (INO) ==
[2020-04-16 10:34] LABS: Basophils % 0.1 %; Eosinophils # 0.1 K/mcL (0.0-0.6); Eosinophils % 1.2 %; Hematocrit 37.7 % (37.5-50.1); Immature Granulocytes % 0.4 % (0-4); Lymphocytes # 0.8 K/mcL (0.6-4.6); Lymphocytes % 9.8 %; Mean Corpuscular HGB Conc 31.8 g/dL (31.6-35.5); Mean Corpuscular Hemoglobin 27.4 pg (28.0-33.3); Mean Corpuscular Volume 86.1 fL (83.0-100.0); Mean Platelet Volume 9.3 fL (9.4-12.4); Monocytes # 0.5 K/mcL (0.0-1.3); Monocytes % 5.6 %; Platelet Count 333 K/mcL (140-400); Red Blood Count 4.38 M/mcL (4.19-5.50); Red Cell Distribution Width 14.9 % (11.5-14.5); Segmented Neutrophils % 82.9 %; White Blood Count 8.5 K/mcL (4.3-11.1)
[2020-04-16 10:40] LABS: Prothrombin Time 11.1 Seconds (9.4-12.1)
[2020-04-16 10:43] LABS: Activated Partial Thrombo Time 32.2 Seconds (26.0-36.0)
[2020-04-16] MEDS: Metoprolol XL (24 HR) Succ 25 MG TAB.ER.24H PO SCH (10:46)
[2020-04-16 11:38] LABS: Alanine Aminotransferase 22 Units/L (7-52); Albumin 4.3 g/dL (3.5-5.7); Albumin/Globulin Ratio 1.5 (1.1-2.2); Alkaline Phosphatase 49 Units/L (34-104); Aspartate Amino Transferase 14 Units/L (13-39); BUN/Creatinine Ratio 16 (6-26); Bilirubin,Total 0.5 mg/dL (0.3-1.0); Blood Urea Nitrogen 15 mg/dL (8-23); Calcium 9.4 mg/dL (8.6-10.3); Carbon Dioxide 24 mEq/L (23-29); Chloride 102 mEq/L (98-107); Globulin 2.8 g/dL (2.4-3.5); Glucose 194 mg/dL (70-105); Osmolality,Calculated 284 (280-300); Potassium 3.7 mEq/L (3.5-5.1); Sodium 134 mEq/L (136-145); Total Protein 7.1 g/dL (6.4-8.9); eGFR For African Americans > 60 (> 60); eGFR For Non-African Americans > 60 (> 60)
[2020-04-16] MEDS ORDERED: Azithromycin 500 MG in 0.9 % Sodium Chloride 250 ML IVPB ONE (12:13)
[2020-04-16] MEDS ORDERED: methylPREDNISolone 125 MG/2 ML VIAL IVP ONE (12:13)
[2020-04-16 14:43] LABS: Magnesium 1.8 mg/dL (1.6-2.6)
[2020-04-16] MEDS ORDERED: MOM Conc 10 ML UD.LIQ PO PRN (15:24)
[2020-04-16] MEDS ORDERED: Ondansetron ODT 4 MG TAB.RAPDIS SL PRN (15:24)
[2020-04-16] MEDS ORDERED: Naloxone 0.4 MG/ML INJ IVP PRN (15:24)
[2020-04-16] MEDS ORDERED: Ondansetron 4 MG/2 ML VIAL IVP PRN (15:24)
[2020-04-16] MEDS ORDERED: Mag Hydrox/Al Hydrox/Simeth 30 ML UDC PO PRN (15:24)
[2020-04-16] MEDS ORDERED: Acetaminophen 325 MG TABLET PO PRN (15:24)
[2020-04-16] MEDS ORDERED: Loratadine 10 MG TABLET PO PRN (16:24)
[2020-04-16] MEDS ORDERED: Gabapentin 300 MG CAPSULE PO PRN (16:24)
[2020-04-16] MEDS ORDERED: Nitroglycerin 0.4 MG TAB.SUBL SL PRN (16:24)
[2020-04-16] MEDS ORDERED: Albuterol 2.5 MG/3 ML NEBULIZER IH PRN (16:24)
[2020-04-16] MEDS: predniSONE 20 MG TABLET PO SCH (18:17)
[2020-04-16] MEDS: cloNIDine HCL 0.1 MG TABLET PO SCH (21:50)
[2020-04-17] MEDS: *HR* Enoxaparin 40 MG/0.4 ML SYRINGE SQ SCH (04:23)
[2020-04-17 06:09] LABS: Basophils % 0.1 %; Eosinophils % 0.1 %; Hematocrit 38.4 % (37.5-50.1); Hemoglobin 12.2 g/dL (12.9-16.9); Immature Granulocytes % 0.5 % (0-4); Lymphocytes # 0.9 K/mcL (0.6-4.6); Lymphocytes % 7.1 %; Mean Corpuscular HGB Conc 31.8 g/dL (31.6-35.5); Mean Corpuscular Hemoglobin 27.3 pg (28.0-33.3); Mean Corpuscular Volume 85.9 fL (83.0-100.0); Mean Platelet Volume 9.8 fL (9.4-12.4); Monocytes # 0.7 K/mcL (0.0-1.3); Monocytes % 5.1 %; Neutrophils # 11.5 K/mcL (1.6-8.9); Platelet Count 355 K/mcL (140-400); Red Blood Count 4.47 M/mcL (4.19-5.50); Segmented Neutrophils % 87.1 %; White Blood Count 13.2 K/mcL (4.3-11.1)
[2020-04-17 06:25] LABS: Alanine Aminotransferase 21 Units/L (7-52); Albumin 4.1 g/dL (3.5-5.7); Albumin/Globulin Ratio 1.4 (1.1-2.2); Alkaline Phosphatase 46 Units/L (34-104); Aspartate Amino Transferase 12 Units/L (13-39); Bilirubin,Total 0.4 mg/dL (0.3-1.0); Calcium 9.6 mg/dL (8.6-10.3); Carbon Dioxide 22 mEq/L (23-29); Chloride 101 mEq/L (98-107); Globulin 2.9 g/dL (2.4-3.5); Glucose 223 mg/dL (70-105); Magnesium 1.9 mg/dL (1.6-2.6); Phosphorous 2.9 mg/dL (2.7-4.5); Potassium 4.6 mEq/L (3.5-5.1); Sodium 131 mEq/L (136-145); eGFR For African Americans > 60 (> 60); eGFR For Non-African Americans > 60 (> 60)
[2020-04-17 06:27] LABS: BUN/Creatinine Ratio 21 (6-26); Blood Urea Nitrogen 20 mg/dL (8-23); Osmolality,Calculated 282 (280-300)
[2020-04-17] MEDS: Azithromycin 500 MG in 0.9 % Sodium Chloride 250 ML IVPB SCH (09:44)
[2020-04-17] MEDS: cloNIDine HCL 0.1 MG TABLET PO SCH ×2 (09:45→22:09)
[2020-04-17] MEDS: amLODIPine 5 MG TABLET PO SCH (09:45)
[2020-04-17] MEDS: Aspirin 81 MG TAB.CHEW PO SCH (09:46)
[2020-04-17] MEDS: Furosemide 40 MG TABLET PO SCH (09:46)
[2020-04-17] MEDS: Cholecalciferol (D-3) 1,000 UNIT (25MCG) TABLET PO SCH (09:46)
[2020-04-17] MEDS: Metoprolol XL (24 HR) Succ 25 MG TAB.ER.24H PO SCH ×3 (09:46→09:49)
[2020-04-17] MEDS: predniSONE 20 MG TABLET PO SCH (09:47)
[2020-04-17] MEDS: GlipiZIDE 5 MG TABLET PO SCH (09:48)
[2020-04-17] MEDS: *HR* Metformin 850 MG TABLET PO SCH (09:48)
[2020-04-17] MEDS: Famotidine 20 MG TABLET PO SCH (09:48)
[2020-04-17] MEDS: Isosorbide MONOnitrate (24 HR) 60 MG TAB.ER.24H PO SCH (09:49)
[2020-04-18] MEDS: *HR* Enoxaparin 40 MG/0.4 ML SYRINGE SQ SCH (05:42)
[2020-04-18] MEDS ORDERED: Cyanocobalamin (B-12) 1,000 MCG/ML VIAL IM SCH (09:00)
[2020-04-18] MEDS: predniSONE 20 MG TABLET PO SCH (09:11)
[2020-04-18] MEDS: *HR* Metformin 850 MG TABLET PO SCH (09:11)
[2020-04-18] MEDS: amLODIPine 5 MG TABLET PO SCH (09:12)
[2020-04-18] MEDS: Aspirin 81 MG TAB.CHEW PO SCH (09:12)
[2020-04-18] MEDS: Famotidine 20 MG TABLET PO SCH (09:12)
[2020-04-18] MEDS: Isosorbide MONOnitrate (24 HR) 60 MG TAB.ER.24H PO SCH (09:12)
[2020-04-18] MEDS: Metoprolol XL (24 HR) Succ 25 MG TAB.ER.24H PO SCH (09:13)
[2020-04-18] MEDS: cloNIDine HCL 0.1 MG TABLET PO SCH (09:13)
[2020-04-18] MEDS: Cholecalciferol (D-3) 1,000 UNIT (25MCG) TABLET PO SCH (09:13)
[2020-04-18] MEDS: GlipiZIDE 5 MG TABLET PO SCH (09:13)
[2020-04-18] MEDS: Furosemide 40 MG TABLET PO SCH (09:13)
[2020-04-18] MEDS: Azithromycin 500 MG in 0.9 % Sodium Chloride 250 ML IVPB SCH (09:14)
[2020-04-18 10:36] VITALS: BP 115/62
== END 2020-04-18 11:31 | disposition home or self-care (01) ==
LOC: INPGRE 09:47 → EMEROOGRE 09:47 → INPGRE 12:35
PROVIDERS: ADMIT Family Medicine; ATTEND Family Medicine